=== PATIENT | male | born 1950 | race Caucasian/White ===

== ENCOUNTER 2017-02-28 21:42 | Emergency (ER) | payer MEDICARE, BC ==
[2017-03-01 00:14] VITALS: BP 175/99
--- NOTE | 2017-03-01 00:33 | EDM.PDOC ---
ED HPI GENERAL MEDICAL PROBLEM - General Chief Complaint: Bite:Animal, Insect Stated Complaint: BITE THAT HAS BLACK IN MIDDLE, [id number] Time Seen by Provider: 02/28/17 22:50 Source of Information: Reports: Patient History Limitations: Reports: No Limitations - History of Present Illness INITIAL COMMENTS - FREE TEXT/NARRATIVE: patient seen on Tuesday in [facility] redness to right leg, seemed better until tonight noted black center in reddened area below knee Location: Reports: Lower Extremity, Right - Related Data Allergies Allergy/AdvReac Type Severity Reaction Status Date / Time No Known Allergies Allergy Verified 02/28/17 22:56 Home Meds: Home Meds Cephalexin [Keflex] 500 mg PO QID 02/28/17 [History] Losartan [Cozaar] 25 mg PO DAILY 02/28/17 [History] Holcomb-3/DHA/Epa/Fish Oil [Holcomb 3 500 Softgel] 1 each PO DAILY 02/28/17 [History ] Omeprazole 40 mg PO DAILY 02/28/17 [History] Verapamil HCl [Verapamil ER] 240 mg PO DAILY 02/28/17 [History] Past Medical History HEENT History: Reports: Hard of Hearing, Impaired Vision Cardiovascular History: Reports: High Cholesterol, Hypertension Gastrointestinal History: Reports: GERD Dermatologic History: Reports: Cellulitis Social & Family History - Tobacco Use Smoking Status *Q: Never Smoker Second Hand Smoke Exposure: No - Recreational Drug Use Recreational Drug Use: No ED ROS GENERAL - Review of Systems Review Of Systems: See Below Constitutional: Reports: No Symptoms HEENT: Reports: No Symptoms Respiratory: Reports: No Symptoms Cardiovascular: Reports: No Symptoms GI/Abdominal: Reports: No Symptoms : Reports: No Symptoms Musculoskeletal: Reports: No Symptoms Skin: Reports: Erythema (right lower leg) Neurological: Reports: No Symptoms ED EXAM, ANIMAL BITE - Physical Exam Exam: See Below Exam Limited By: No Limitations General Appearance: Alert, No Apparent Distress Ears: Normal External Exam Nose: Normal Inspection Head: Atraumatic, Normocephalic Respiratory/Chest: No Respiratory Distress Cardiovascular: Regular Rate, Rhythm Extremities: Redness (below right knee 3cm circular area with 2mm dark center, non calloused, bruised appearance. minimal warmth to red area. no swelling of knee joint. Previous marked area have resolved. ). No: Pedal Edema, Joint Swelling, Limited Range of Motion Neurological: Alert, Oriented, Normal Cognition, Normal Gait Skin Exam: Warm/Dry, Other (3cm patch below right knee with 3mm dark bruised center.) Course - Vital Signs Last Recorded V/S: Last Vital Signs Temp 96.4 F 03/01/17 00:11 Pulse 63 03/01/17 00:11 Resp 14 03/01/17 00:11 BP 175/99 H 03/01/17 00:11 Pulse Ox 98 03/01/17 00:11 - Orders/Labs/Meds Meds: Medications Discontinued Medications Generic Name Dose Route Start Last Admin Trade Name Freq PRN Reason Stop Dose Admin Trimethoprim/Sulfamethoxazole Confirm 03/01/17 00:36 03/01/17 00:38 Septra Ds Administered 03/01/17 00:37 Not Given Dose 2 tab .ROUTE .STK-MED ONE Departure - Departure Time of Disposition: 00:28 Disposition: Home, Self-Care 01 Condition: Good Clinical Impression: Cellulitis Qualifiers: Site of cellulitis: extremity Site of cellulitis of extremity: lower extremity Laterality: right Qualified Code(s): L03.115 - Cellulitis of right lower limb - Discharge Information Instructions: Insect Bite, [id number] Forms: ED Department Discharge Additional Instructions: bactrim DS in addition to current keflex follow up with primary care this week as scheduled, sooner if increased redness or pain
[2017-03-01] MEDS ORDERED: Sulfamethoxazole/Trimethoprim 800-160 MG Tab ONE (00:36)
[2017-03-01] MEDS ORDERED: Sulfamethoxazole/Trimethoprim 800-160 MG Tab PO ONE (00:36)
== END 2017-03-01 00:44 | disposition home or self-care (01) ==
LOC: MERGE 21:42 → DL.ED 21:42
DX: L03.115 Cellulitis of right lower limb (principal); E78.00 Pure hypercholesterolemia, unspecified; H54.7 Unspecified visual loss; I10 Essential (primary) hypertension; K21.9 Gastro-esophageal reflux disease without esophagitis; Z79.899 Other long term (current) drug therapy
CPT/HCPCS: 99283; A9270